=== PATIENT | female | born 1995 | race Caucasian/White ===

== ENCOUNTER → 2021-08-13 20:20 | Observation (INO) ==
[2021-08-13 19:45] LABS: Bacteria,Urine Few per hpf (None-Few); Bilirubin,Urine Negative (Negative); Blood,Urine Negative (Negative); Clarity,Urine Turbid (Clear); Color,Urine Yellow (Yellow); Glucose,Urine (UA) Normal (Normal); Ketones,Urine Negative (Negative); Leukocyte Esterase,Urine Large (Negative); Mucus,Urine Few per lpf (None-Few); Nitrite,Urine Negative (Negative); PH,Urine 5.5 pH Units (5.0-8.0); Protein,Urine 30 mg/dL (Neg-Trace); Specific Gravity,Urine > 1.030 (1.010-1.025); Squamous Epithelial Cell,Urine Moderate per hpf (None-Few); Urobilinogen,Urine Normal (Normal)
[~2021-08-13 20:20] MED LIST: Nitrofurantoin (BID) 100 MG CAPSULE PO SCH
== END | disposition home or self-care (01) ==
LOC: 1NENULAB
PROVIDERS: ADMIT Student in an Organized Health Care Education/Training Program; ATTEND Student in an Organized Health Care Education/Training Program

== ENCOUNTER → 2021-08-25 23:28 | Observation (INO) ==
[2021-08-25 23:06] LABS: Bacteria,Urine Few per hpf (None-Few); Bilirubin,Urine Negative (Negative); Blood,Urine Negative (Negative); Clarity,Urine Clear (Clear); Color,Urine Light-Yellow (Yellow); Glucose,Urine (UA) Normal (Normal); Ketones,Urine Negative (Negative); Leukocyte Esterase,Urine Trace (Negative); Mucus,Urine Few per lpf (None-Few); Nitrite,Urine Negative (Negative); Protein,Urine Negative (Neg-Trace); RBC,Urine 0-3 per hpf (0-3); Specific Gravity,Urine 1.013 (1.010-1.025); Squamous Epithelial Cell,Urine Few per hpf (None-Few); Urobilinogen,Urine Normal (Normal); WBC,Urine 0-3 per hpf (0-3)
== END | disposition home or self-care (01) ==
LOC: 1NENULAB
PROVIDERS: ADMIT Obstetrics & Gynecology; ATTEND Obstetrics & Gynecology

== ENCOUNTER 2021-09-28 03:35 | Observation (INO) ==
[2021-09-28 03:57] LABS: Bacteria,Urine Few per hpf (None-Few); Bilirubin,Urine Negative (Negative); Blood,Urine Negative (Negative); Clarity,Urine Clear (Clear); Color,Urine Light-Yellow (Yellow); Glucose,Urine (UA) Normal (Normal); Ketones,Urine Negative (Negative); Leukocyte Esterase,Urine Trace (Negative); Mucus,Urine Few per lpf (None-Few); Nitrite,Urine Negative (Negative); Protein,Urine Negative (Neg-Trace); RBC,Urine 0-3 per hpf (0-3); Specific Gravity,Urine 1.012 (1.010-1.025); Squamous Epithelial Cell,Urine Few per hpf (None-Few); Urobilinogen,Urine Normal (Normal); WBC,Urine 0-3 per hpf (0-3)
== END 2021-09-28 05:06 | disposition home or self-care (01) ==
LOC: 1NENULAB
PROVIDERS: ADMIT Obstetrics & Gynecology; ATTEND Obstetrics & Gynecology

== ENCOUNTER → 2021-10-30 19:45 | Observation (INO) ==
[2021-10-30 21:02] LABS: Candida DNA DETECTED (Not Detect); Gardnerella DNA DETECTED (Not Detect); Trichomonas DNA Not Detected (Not Detect)
== END | disposition home or self-care (01) ==
LOC: 1NENULAB
PROVIDERS: ADMIT Obstetrics & Gynecology; ATTEND Obstetrics & Gynecology

== ENCOUNTER → 2021-11-12 20:13 | Observation (INO) ==
[2021-11-12 20:00] LABS: Bilirubin,Urine Negative (Negative); Blood,Urine Negative (Negative); Clarity,Urine Clear (Clear); Color,Urine Yellow (Yellow); Glucose,Urine (UA) Normal (Normal); Ketones,Urine Negative (Negative); Leukocyte Esterase,Urine Negative (Negative); Nitrite,Urine Negative (Negative); Protein,Urine Trace mg/dL (Neg-Trace); Specific Gravity,Urine 1.023 (1.010-1.025); Urobilinogen,Urine Normal (Normal)
== END | disposition home or self-care (01) ==
LOC: 1NENULAB
PROVIDERS: ADMIT Obstetrics & Gynecology; ATTEND Obstetrics & Gynecology

== ENCOUNTER 2021-12-07 08:54 | Inpatient (IN) ==
[2021-12-07] MEDS ORDERED: Famotidine 20 MG/2 ML VIAL IVP ONE (10:16)
[2021-12-07] MEDS ORDERED: Metoclopramide 10 MG/2 ML VIAL IVP ONE (10:16)
[2021-12-07] MEDS ORDERED: Ringers Solution, Lactated 1,000 ML IVC ONE (10:16)
[2021-12-07] MEDS ORDERED: OXYTOCIN/RINGERS LACTATE 10 UNIT/166.6 ML BAG IVC ONE (10:16)
[2021-12-07] MEDS ORDERED: CeFAZolin Syr 3,000MG/30 ML 3,000 MG/30 ML SYRINGE IVPB ONE (10:16)
[2021-12-07] MEDS ORDERED: Oxytocin 30 UNIT/503 ML BAG IVC SCH ×2 (10:30→17:41)
[2021-12-07 10:49] LABS: Hematocrit 34.1 % (35.3-44.9); Hemoglobin 11.2 g/dL (11.5-15.4); Mean Corpuscular Volume 88.6 fL (83.0-100.0); Red Blood Count 3.85 M/mcL (3.82-4.97); White Blood Count 13.9 K/mcL (4.3-11.1)
[2021-12-07 10:50] LABS: Basophils % 0.3 %; Eosinophils # 0.1 K/mcL (0.0-0.6); Eosinophils % 0.6 %; Immature Granulocytes % 1.2 % (0-4); Lymphocytes # 2.6 K/mcL (0.6-4.6); Lymphocytes % 18.5 %; Mean Corpuscular HGB Conc 32.8 g/dL (31.6-35.5); Mean Corpuscular Hemoglobin 29.1 pg (28.0-33.3); Mean Platelet Volume 10.1 fL (9.4-12.4); Monocytes # 0.7 K/mcL (0.0-1.3); Monocytes % 5.2 %; Neutrophils # 10.3 K/mcL (1.6-8.9); Platelet Count 233 K/mcL (140-400); Red Cell Distribution Width 14.6 % (11.5-14.5); Segmented Neutrophils % 74.2 %
[2021-12-07] MEDS: Ringers Solution, Lactated 1,000 ML IVC SCH ×2 (11:31→12:59)
[2021-12-07 12:02] LABS: Amphetamine Screen,Urine Negative ng/mL (Cutoff=1000); Barbiturate Screen,Urine Negative ng/mL (Cutoff=200); Benzodiazepines Screen,Urine Negative ng/mL (Cutoff=200); Cannabinoid Screen,Urine Negative ng/mL (Cutoff = 50); Cocaine Screen,Urine Negative ng/mL (Cutoff= 300); Opiate Screen,Urine Negative ng/mL (Cutoff=300); Phencyclidine Screen,Urine Negative ng/mL (Cutoff=25)
[2021-12-07] MEDS ORDERED: *HR* FentaNYL (PF) 100 MCG/2 ML VIAL ONE (12:57)
[2021-12-07] MEDS ORDERED: Ondansetron 4 MG/2 ML VIAL ONE (12:57)
[2021-12-07] MEDS ORDERED: *HR* Morphine Sulfate/PF 10 MG/10 ML AMPUL ONE (12:57)
[2021-12-07] MEDS ORDERED: Ketorolac 30 MG/ML VIAL ONE (12:58)
[2021-12-07] MEDS ORDERED: Acetaminophen IV 1,000 MG/100 ML BAG IVPB ONE (12:58)
[2021-12-07] MEDS ORDERED: Ringers Solution, Lactated 1,000 ML ONE (14:14)
[2021-12-07] MEDS ORDERED: Rho Immune Globulin 1,500 UNIT SYRINGE IM ONE (17:41)
[2021-12-07] MEDS ORDERED: Metoclopramide 10 MG/2 ML VIAL IVP PRN (17:41)
[2021-12-07] MEDS ORDERED: Ondansetron 4 MG/2 ML VIAL IVP PRN (17:41)
[2021-12-07] MEDS ORDERED: *HR* OxyCODONE Immed Rel 5 MG TABLET PO PRN (17:41)
[2021-12-07] MEDS ORDERED: Ringers Solution, Lactated 1,000 ML IVC SCH (17:41)
[2021-12-07] MEDS: Acetaminophen 325 MG TABLET PO SCH (19:49)
[2021-12-07] MEDS: Ibuprofen 600 MG TABLET PO SCH (19:49)
[2021-12-07] MEDS: *HR* Enoxaparin 60 MG/0.6 ML SYRINGE SQ SCH (19:50)
[2021-12-08] MEDS: Ibuprofen 600 MG TABLET PO SCH ×4 (03:00→22:34)
[2021-12-08] MEDS: Acetaminophen 325 MG TABLET PO SCH ×4 (03:00→22:34)
[2021-12-08] MEDS: Simethicone 80 MG TAB.CHEW PO PRN ×2 (03:00→22:34)
[2021-12-08 04:25] LABS: Basophils % 0.3 %; Eosinophils # 0.1 K/mcL (0.0-0.6); Eosinophils % 0.4 %; Hematocrit 31.3 % (35.3-44.9); Hemoglobin 10.2 g/dL (11.5-15.4); Immature Granulocytes % 0.8 % (0-4); Lymphocytes # 2.2 K/mcL (0.6-4.6); Mean Corpuscular HGB Conc 32.6 g/dL (31.6-35.5); Mean Corpuscular Hemoglobin 28.8 pg (28.0-33.3); Mean Corpuscular Volume 88.4 fL (83.0-100.0); Mean Platelet Volume 10.1 fL (9.4-12.4); Monocytes # 0.7 K/mcL (0.0-1.3); Monocytes % 4.7 %; Neutrophils # 12.5 K/mcL (1.6-8.9); Platelet Count 233 K/mcL (140-400); Red Blood Count 3.54 M/mcL (3.82-4.97); Red Cell Distribution Width 14.3 % (11.5-14.5); Segmented Neutrophils % 79.8 %; White Blood Count 15.6 K/mcL (4.3-11.1)
[2021-12-08] MEDS: Prenatal Vit/FA 1 EACH TABLET PO SCH (08:57)
[2021-12-08] MEDS: *HR* Enoxaparin 60 MG/0.6 ML SYRINGE SQ SCH ×2 (08:58→22:33)
[2021-12-09] MEDS: Ibuprofen 600 MG TABLET PO SCH ×2 (04:15→09:36)
[2021-12-09] MEDS: Acetaminophen 325 MG TABLET PO SCH ×2 (04:16→09:37)
[2021-12-09 07:14] VITALS: BP 101/68; PULSE 84; TEMP 97.6; O2SAT 97
[2021-12-09] MEDS: Aspirin Enteric Coated 81 MG Tablet PO SCH ×2 (09:28→09:38)
[2021-12-09] MEDS: Simethicone 80 MG TAB.CHEW PO PRN (09:29)
[2021-12-09] MEDS: Prenatal Vit/FA 1 EACH TABLET PO SCH (09:30)
[2021-12-09] MEDS: *HR* Enoxaparin 60 MG/0.6 ML SYRINGE SQ SCH (09:30)
== END 2021-12-09 15:35 | disposition home or self-care (01) | DRG 540 ==
LOC: 1NENULAB 08:54 → 1NENUOBS 17:28
PROVIDERS: ADMIT Obstetrics & Gynecology; ATTEND Obstetrics & Gynecology